=== PATIENT | female | born 1975 | race Caucasian/White ===

== ENCOUNTER 2017-01-10 07:21 | Emergency (ER) | payer BC ==
[~2017-01-10 07:21] MED LIST: AMBIEN10 MG PO; ATIVAN1 MG PO; CLARITIN-D1 TAB.SR . PO; GLUCOTROL 5 MG T5 MG PO; HYDROCODONE-APA1 TAB PO; IPRAT-ALBUT 0.5-3 ML UPD; LOPID600 MG PO; PLAQUENIL200 MG PO; PROTONIX40 MG PO; PROZAC20 MG PO; TUSSIONEX PENN473 ML PO; ZITHROMAX500 MG PO
[2017-01-10 07:59] LABS: BASOPHILS 0.4 % (0.0-2.0); HEMATOCRIT 35.9 % (36.0-48.0); HEMOGLOBIN 11.6 g/dL (12-16); IMMATURE GRANULOCYTES 0.2 % (0-5); LYMPHOCYTES 13.2 % (15-50); MCH 28.2 pg (26.0-34.0); MCHC 32.3 g/dL (31.0-37.0); MCV 87.3 fL (80.0-100.0); MEAN PLATELET VOLUME 9.6 fL (7.4-10.4); MONOCYTES 10.4 % (2-11); NEUTROPHILS 73.8 % (40-80); RBC 4.11 10x6/uL (4.00-5.40); RDW 17.3 % (11.5-14.5); WBC 5.5 10x3/uL (4.8-10.8)
[2017-01-10 08:00] LABS: PLATELET COUNT 315 10x3/uL (130-400)
[2017-01-10 08:16] LABS: ALKALINE PHOSPHATASE 160 U/L (46-116); ALT (SGPT) 20 U/L (10-68); BILIRUBIN - TOTAL 0.35 mg/dL (0.2-1.3); CALC OSMOLALITY 281 mosm/kg (275-300); CALCIUM 9.3 mg/dL (8.5-10.1); CARBON DIOXIDE 26.9 mmol/L (21.0-32.0); CHLORIDE - SERUM 99 mmol/L (98-107); POTASSIUM - SERUM 4.4 mmol/L (3.5-5.1); PROTEIN - SERUM 7.8 g/dL (6.4-8.2); SODIUM 138 mmol/L (136-145); UREA NITROGEN 19 mg/dL (7-18); eGFR NON AFRICAN AMERICAN 65 mL/min (90-120)
[2017-01-10 08:22] LABS: GLUCOSE 172 mg/dL (74-106)
[2017-01-10 08:26] LABS: CKMB 0.4 U/L (0.0-3.6); CREATINE KINASE 61 UL (21-215)
[2017-01-10 08:27] LABS: TROPONIN-I < 0.017 ng/mL (0.000-0.060)
== END 2017-01-10 10:34 | disposition home or self-care (01) ==
LOC: D.ER 07:21
PROVIDERS: Emergency Medicine
DX: R09.1 Pleurisy (principal); J15.9 Unspecified bacterial pneumonia; E11.9 Type 2 diabetes mellitus without complications; R00.0 Tachycardia, unspecified; I49.3 Ventricular premature depolarization

== ENCOUNTER → 2017-09-30 11:52 | Outpatient (CLI) | payer BC | END | disposition home or self-care (01) | LOC: D.CT 11:30 | DX: R10.9 Unspecified abdominal pain (principal) ==

== ENCOUNTER 2019-06-25 06:20 | Day surgery (SDC) | payer BC ==
[~2019-06-25] VITALS: Ht 172.7 cm; Wt 97.3 kg
[2019-06-25] MEDS ORDERED: LISINOPRIL5 MG PO (07:02)
[2019-06-25] MEDS ORDERED: GLUCOPHAGE500 MG PO (07:02)
[2019-06-25] MEDS ORDERED: LEXAPRO20 MG PO (07:02)
[2019-06-25] MEDS ORDERED: BUPROPION HCL100 MG PO (07:02)
[2019-06-25] MEDS ORDERED: ADDERALL 20 MG20 M1 PO (07:03)
[2019-06-25] MEDS ORDERED: NEXIUM40 MG PO (07:03)
[2019-06-25] MEDS ORDERED: ZYRTEC10 MG PO (07:03)
[2019-06-25] MEDS ORDERED: HYDROCODON-ACE1 EA10 PO (07:04)
[2019-06-25] MEDS ORDERED: ZOFRAN8 MG PO (07:04)
[2019-06-25 07:12] VITALS: Ht 172.7 cm; Wt 97.3 kg
[2019-06-25 07:16] LABS: HCG URINE NEGATIVE (NEGATIVE)
[2019-06-25 07:56] LABS: HEMATOCRIT 35.5 % (36.0-48.0); HEMOGLOBIN 11.3 g/dL (12-16); MCH 26.7 pg (26.0-34.0); MCHC 31.8 g/dL (31.0-37.0); MCV 83.9 fL (80.0-100.0); MEAN PLATELET VOLUME 10.4 fL (7.4-10.4); RBC 4.23 10x6/uL (4.00-5.40); RDW 17.1 % (11.5-14.5); WBC 3.7 10x3/uL (4.8-10.8)
--- NOTE | 2019-06-25 08:46 | NUR ---
0827 DR. TEVIN PIPER.
--- NOTE | 2019-07-04 16:44 | OP ---
PATIENT NAME: SILVINA CLIFTON MEDICAL RECORD: [id number] :75 LOCATION:D.[facility] ADMISSION DATE: SURGEON: MARCEL ABARCA DO DATE OF OPERATION: 06/25/2019 PROCEDURE: Colonoscopy with polypectomy. INDICATIONS FOR PROCEDURE: Screening for colorectal cancer with a history of colon polyps. Last colonoscopy was in 2003 when a rectal polyp was removed. SCOPE: Olympus video pediatric colonoscope. MEDICATIONS: Propofol 550 mg IV per anesthesia. WITHDRAWAL TIME: 15 minutes. ESTIMATED BLOOD LOSS: Minimal. COMPLICATIONS: None. FINDINGS: Informed consent was given. The patient was made comfortable with the above medication. After reaching an adequate level of sedation by slow IV push, the patient was placed on her left side. A digital rectal examination was performed and was normal. The endoscope was then advanced under direct visualization through the rectum to the cecum and terminal ileum. The endoscope was slowly withdrawn and mucosa was carefully examined. The prep quality was good. There was a single benign-appearing sessile polyp, which was located in the ascending colon. It measured approximately 5 mm in diameter. It was removed using a hot snare in 1 piece and it was retrieved. There were no diverticula visualized on today's examination. Retroflexion was performed in the rectum with visualization of grade I internal hemorrhoids, which were not bleeding. Random cold forceps biopsies were taken to submit for histopathology and to rule out the presence of microscopic colitis. The endoscope was withdrawn from the patient. The patient tolerated the procedure well and there were no complications. IMPRESSION: 1. A single benign-appearing polyp was removed from the ascending colon. 2. Grade I internal hemorrhoids without bleeding. PLAN AND RECOMMENDATIONS: 1. Discharge home when recovery parameters are met. 2. Follow up biopsy specimen results. 3. High fiber diet. 4. Continue current medications. 5. Recall colonoscopy in 5 years. 6. Proceed with upper endoscopy for ongoing workup of anemia. 7. After review of biopsies, consider medications for symptomatic improvement in loose stools. TRANSINT:[id number] Voice Confirmation ID: [id number] DOCUMENT ID: [id number] OPERATIVE REPORT [id number] SILVINA CLIFTON MARCEL ABARCA DO at 1644 CC: [id number] DICTATION DATE: 06/25/19826 AWNING HANGER: 06/25/19906 [facility] 06/25/19 [facility] [address] [place] [address]
== END 2019-06-25 09:30 | disposition home or self-care (01) ==
LOC: D.OPS 06:20
PROVIDERS: Anesthesiology; ATTEND Internal Medicine Gastroenterology
DX: K63.5 Polyp of colon (principal); Z12.11 Encounter for screening for malignant neoplasm of colon; K64.0 First degree hemorrhoids

== ENCOUNTER 2019-09-03 06:59 | Day surgery (SDC) | payer BC ==
[~2019-09-03] VITALS: Ht 172.7 cm; Wt 97.3 kg
[~2019-09-03 06:59] MED LIST changes: +ADDERALL 20 MG20 M1 PO; +BUPROPION HCL100 MG PO; +GLUCOPHAGE500 MG PO; +HYDROCODON-ACE1 EA10 PO; +LEXAPRO20 MG PO; +LISINOPRIL5 MG PO; +NEXIUM40 MG PO; +ZOFRAN8 MG PO; +ZYRTEC10 MG PO
[2019-09-03 07:28] LABS: CALC OSMOLALITY 286 mosm/kg (275-300); CARBON DIOXIDE 29.6 mmol/L (21.0-32.0); CHLORIDE - SERUM 106 mmol/L (98-107); CREATININE - SERUM 0.7 mg/dL (0.6-1.3); HEMATOCRIT 37.8 % (36.0-48.0); HEMOGLOBIN 12.2 g/dL (12-16); MCH 29.5 pg (26.0-34.0); MCHC 32.3 g/dL (31.0-37.0); MCV 91.3 fL (80.0-100.0); MEAN PLATELET VOLUME 9.3 fL (7.4-10.4); POTASSIUM - SERUM 3.8 mmol/L (3.5-5.1); RBC 4.14 10x6/uL (4.00-5.40); RDW 17.5 % (11.5-14.5); SODIUM 143 mmol/L (136-145); UREA NITROGEN 14 mg/dL (7-18); WBC 3.2 10x3/uL (4.8-10.8); eGFR NON AFRICAN AMERICAN > 90 mL/min (90-120)
[2019-09-03 07:29] LABS: GLUCOSE 109 mg/dL (74-106)
[2019-09-03] MEDS ORDERED: ZYRTEC10 MG PO (07:44)
[2019-09-03] MEDS ORDERED: EZFE 200200 MG PO (07:47)
[2019-09-03] MEDS ORDERED: PREPLUS CA-FE1 EACH PO (07:48)
[2019-09-03 08:01] VITALS: BP 104/73; Ht 172.7 cm; Wt 97.3 kg
--- NOTE | 2019-09-03 09:13 | NUR ---
0902 IV DC'D. CATHETER TIP INTACT. NO BLEEDING AT SITE. BANDAID APPLIED.
--- NOTE | 2019-09-03 09:30 | OP ---
PATIENT NAME: SILVINA CLIFTON MEDICAL RECORD: [id number] :75 LOCATION:[facility] ADMISSION DATE: SURGEON: MARCEL ABARCA DO DATE OF OPERATION: 09/03/2019 PROCEDURE: EGD with biopsies. INDICATIONS FOR PROCEDURE: Heartburn and epigastric abdominal pain. SCOPE: Olympus video gastroscope. MEDICATIONS: Propofol 200 mg IV per anesthesia. ESTIMATED BLOOD LOSS: Minimal. COMPLICATIONS: None. FINDINGS: Informed consent was given. The patient was made comfortable with the above medication. After reaching an adequate level of sedation by slow IV push, the patient was placed on her left side. The endoscope was advanced under direct visualization through the mouth to the second portion of the duodenum with ease. The upper and middle esophagus appeared normal. In the distal third of the esophagus and GE junction, there was evidence of LA class B reflux-induced esophagitis. Cold forceps biopsies were taken at the squamocolumnar junction to submit for histopathology. The endoscope was advanced beyond the GE junction into the stomach and retroflexed to view the cardia. 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 The fundus and body of the stomach appeared normal. In the antrum and prepyloric regions, there was some erythema and granularity consistent with gastritis. There were a few benign appearing nodules which appeared to be reactive in nature. Cold forceps biopsies were taken randomly in the antrum to submit for histopathology and to rule out the presence of H. pylori, and specific biopsies were taken from a couple of the nodules to submit for histopathology. The endoscope was advanced beyond the pylorus into the duodenum, which appeared normal to the second portion. Random cold forceps biopsies were taken to submit for histopathology. The endoscope was withdrawn from the patient. The patient tolerated the procedure well and there were no complications. IMPRESSION: 1. LA class B reflux-induced esophagitis. 2. Very small sliding hiatal hernia versus anatomical changes from the sleeve gastrectomy. 3. Antral and prepyloric gastritis. 4. Reactive appearing gastric nodules. Biopsies pending. 5. Otherwise, normal upper endoscopy. PLAN AND RECOMMENDATIONS: 1. Discharge home when recovery parameters are met. 2. Follow up biopsy specimen results. 3. GERD diet and reflux precautions. 4. We will continue current antacid of Nexium 40 mg daily at least until followup. 5. Follow up in GI clinic in 3 months. If symptoms are relatively well controlled can consider decreasing dose to 20 mg daily at that time. OPERATIVE REPORT [id number] SILVINA CLIFTON TRANSINT:[id number] Voice Confirmation ID: [id number] DOCUMENT ID: [id number] MARCEL ABARCA DO at 0930 CC: [id number] DICTATION DATE: 09/03/19828 JAIL MANAGER: 09/03/19 0844 [place] [id number] [place] [id number]
== END 2019-09-03 09:34 | disposition home or self-care (01) ==
LOC: D.OPS 06:59
PROVIDERS: Anesthesiology; ATTEND Internal Medicine Gastroenterology
DX: R12 Heartburn (principal); J45.909 Unspecified asthma, uncomplicated; E11.9 Type 2 diabetes mellitus without complications; Z79.84 Long term (current) use of oral hypoglycemic drugs; Z86.010 Personal history of colon polyps